=== PATIENT | female | born 1945 | race Caucasian/White ===

== ENCOUNTER → 2017-03-12 | Outpatient (CLI) | payer MEDICARE ==
[~2017-03-12] MED LIST: ATENOLOL PO; ATENOLOL100 MG PO; ESIDRIX25 MG PO; FOSAMAX PO; HYDRODIURIL25 MG PO; IRON TABLETS325 MG PO; METHYLPHENIDATE; METHYLPHENIDATE PO; PERCOCET 5/321 UDTAB PO; XANAX0.25 MG PO
== END ==
LOC: COL.RAD 08:28
DX: Z01.89 Encounter for other specified special examinations (principal)